=== PATIENT | male | born 1945 | race Caucasian/White ===

== ENCOUNTER → 2016-12-07 | Outpatient (CLI) | payer MEDICARE, BC | END | disposition home or self-care (01) | LOC: LABWHC1 16:35 | PROVIDERS: ATTEND Internal Medicine | DX: R19.7 Diarrhea, unspecified (principal) | CPT/HCPCS: 36415; 82272; 87045; 87046; 87324; 87328; 87329; 89055 ==

== ENCOUNTER 2016-12-17 17:16 | Inpatient (IN) | payer MEDICARE, BC ==
[2016-12-17] MEDS ORDERED: SODIUM CHLORIDE 0.9% 1,000 ML IV STA (17:24)
[2016-12-17 17:55] LABS: Glucose,Whole Blood 514 mg/dL (75-99)
[2016-12-17 18:00] LABS: Basophils % (A) 1 %; CH 33.1; CHCM 33.3; Eosinophils % (A) 1 %; HDW 2.56; HGB 11.2 gm/dL (13.0-17.5); Luc # (Auto) 0.08; Luc % (Auto) 3; Lymphocytes # (A) 0.6 k/uL (1.0-4.8); Lymphocytes % (A) 16 %; MCH 32.9 pg (25.0-35.0); MCHC 32.8 g/dL (31.0-37.0); MCV 100.1 fL (80.0-100.0); Mean Platelet Volume 9.1; Monocytes # (A) 0.2 k/uL (0-1.0); Monocytes % (A) 7 %; Neutrophils # (A) 2.5 k/uL (1.3-7.7); Neutrophils % (A) 73 %; RDW 12.9 % (11.5-15.5); VBG PH 7.31 (7.31-7.41); WBC 3.4 k/uL (3.8-10.6); WBC (Perox) 3.37
[2016-12-17 18:11] LABS: Appearance,Urine Clear (Clear); Bilirubin,Urine Negative (Negative); Glucose,Urine (UA) 4+ (Negative); Ketones,Urine Negative (Negative); Leukocyte Esterase,Urine Negative (Negative); Mucus,Urine Rare /hpf; Nitrite,Urine Negative (Negative); PH, Urine 5.5 (5.0-8.0); Particle Count 386; Protein,Urine 2+ (Negative); RBC,Urine <1 /hpf (0-5); Specific Gravity,Urine 1.011 (1.001-1.035); UA Billing (MACRO vs. MICRO) MICRO; Urobilinogen,Urine <2.0 mg/dL (<2.0); WBC,Urine <1 /hpf (0-5)
[2016-12-17 18:11] LABS: ALT 39 U/L (21-72); AST 20 U/L (17-59); Alkaline Phosphatase 88 U/L (38-126); Anion Gap 6 mmol/L; Blood Urea Nitrogen 35 mg/dL (9-20); Calcium 8.3 mg/dL (8.4-10.2); Carbon Dioxide 22 mmol/L (22-30); Chloride 105 mmol/L (98-107); Non-African American GFR(MDRD) 43 (>60 ml/min/1.73 sqM); Phosphorous 3.4 mg/dL (2.5-4.5); Potassium 4.7 mmol/L (3.5-5.1); Sodium 133 mmol/L (137-145); Total Bilirubin 0.4 mg/dL (0.2-1.3); Total Protein 5.2 g/dL (6.3-8.2)
--- NOTE | 2016-12-17 18:15 | ED ---
General Adult HPI - General Chief complaint: Recheck/Abnormal Lab/Rx Stated complaint: Hyperglycemia Time Seen by Provider: 12/17/16 17:24 Source: patient, RN notes reviewed, old records reviewed Mode of arrival: EMS Limitations: no limitations - History of Present Illness Initial comments: This is a 70-year-old male to the ER for evaluation of abnormal lab tests increased blood well. Patient does have evidence above and does suffer from insulin-dependent diabetes. Patient has no chest pain shortness of breath or abdominal pain. No nausea vomiting or diarrhea. No fevers. Patient has had elevated blood sugar at home, of a blood pressure, patient lives by himself and family states patient has not been acting appropriately. Patient was supposed to make it to a dinner today with a friend and he is completely [place]. It is not like this patient is very prompt. Patient was found at his house with altered mental status by family and friends - Related Data Home Medications Medication Instructions Recorded Confirmed ALPRAZolam [Xanax] 0.25 mg PO BID PRN 03/11/14 12/17/16 Acetaminophen-Codeine 300-30mg 1 tab PO TID PRN 03/11/14 12/17/16 [Tylenol w/codeine #3] Atorvastatin [Lipitor] 20 mg PO HS 03/11/14 12/17/16 Clopidogrel [Plavix] 75 mg PO DAILY 03/11/14 12/17/16 Cyclobenzaprine [Flexeril] 10 mg PO BID PRN 03/11/14 12/17/16 Isosorbide Mononitrate ER [Imdur] 30 mg PO QAM 03/11/14 12/17/16 hydrALAZINE HCL 25 mg PO TID 03/31/14 12/17/16 Enalapril [Vasotec] 20 mg PO QAM 08/18/14 12/17/16 Ergocalciferol [Vitamin D2 50,000 unit PO QMONTH 09/16/14 12/17/16 (DRISDOL)] Atenolol [Tenormin] 50 mg PO QAM 09/25/14 12/17/16 INSULIN LISPRO (humaLOG) [humaLOG See Protocol SQ-PUMP CONTINUOUS 09/25/1412/17 (formulary)] Aspirin 81 mg PO DAILY 01/30/15 12/17/16 Cyanocobalamin [Vitamin B-12] 1,000 mcg PO DAILY 03/03/16 12/17/16 Glucagon Emergency Kit [Glucagon 1 dose IM ONCE PRN 03/03/16 12/17/16 Emergency Kit] Pyridoxine [Vitamin B-6] 50 mg PO DAILY 03/03/16 12/17/16 Thiamine [Vitamin B-1] 100 mg PO DAILY 03/03/16 12/17/16 amLODIPine [Norvasc] 5 mg PO DAILY 03/03/16 12/17/16 Torsemide [Demadex] 10 mg PO DAILY PRN 12/17/16 12/17/16 Zolpidem [Ambien] 5 mg PO HS 12/17/16 12/17/16 Allergies Allergy/AdvReac Type Severity Reaction Status Date / Time No Known Allergies Allergy Verified 12/17/16 18:17 Review of Systems ROS Statement: Those systems with pertinent positive or pertinent negative responses have been documented in the HPI. ROS Other: All systems not noted in ROS Statement are negative. Past Medical History Past Medical History: Coronary Artery Disease (CAD), CVA/TIA, Diabetes Mellitus , Hyperlipidemia, Hypertension, Myocardial Infarction ([place]), Musculoskeletal Disorder Additional Past Medical History / Comment(s): Osteomyelitis of the right second and third toes status post amputation in 2010. February MRI misaligned vertibrae in neck, cervical. Last Myocardial Infarction Date:: 2009 History of Any Multi-Drug Resistant Organisms: None Reported Past Surgical History: Appendectomy, Heart Catheterization, Heart Catheterization With Stent, Joint Replacement, Orthopedic Surgery, Tonsillectomy Additional Past Surgical History / Comment(s): Amputation of the right second and third toes for osteomyelitis that failed conservative treatment of a Rg grade 3 diabetic ulcer. Nonmalignant mass removed from the left anterior chestwall.Endoscopic sinus surgery. Bilateral cataract removal and lens implant. Laser procedures done on both eyes. two moles rmeoved from back Past Anesthesia/Blood Transfusion Reactions: No Reported Reaction Date of Last Stent Placement:: 2009 Past Psychological History: No Psychological Hx Reported Smoking Status: Never smoker Past Alcohol Use History: None Reported Additional Past Alcohol Use History / Comment(s): Patient is and lives with his . He has 2 adult daughters that are modestly well. The younger daughter with scoliosis. Another with out troubles. Patient is been a lifelong nonsmoker.Nosignificant alcohol use. 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 There isapet dog in the home. Past Drug Use History: None Reported - Past Family History Father Family Medical History: Congestive Heart Failure (CHF) Mother Family Medical History: Dementia, Myocardial Infarction ([place]) General Exam - General Exam Comments Initial Comments: NIH of 2, inappropriate answers to questions Limitations: no limitations General appearance: alert, in no apparent distress Head exam: Present: atraumatic, normocephalic, normal inspection Eye exam: Present: normal appearance, PERRL, EOMI. Absent: scleral icterus, conjunctival injection, periorbital swelling ENT exam: Present: normal exam, mucous membranes moist Neck exam: Present: normal inspection. Absent: tenderness, meningismus, lymphadenopathy Respiratory exam: Present: normal lung sounds bilaterally. Absent: respiratory distress, wheezes, rales, rhonchi, stridor Cardiovascular Exam: Present: regular rate, normal rhythm, normal heart sounds. Absent: systolic murmur, diastolic murmur, rubs, gallop, clicks GI/Abdominal exam: Present: soft, normal bowel sounds. Absent: distended, tenderness, guarding, rebound, rigid Extremities exam: Present: normal inspection, full ROM, normal capillary refill. Absent: tenderness, pedal edema, joint swelling, calf tenderness Back exam: Present: normal inspection Neurological exam: Present: alert, oriented X3, CN II-XII intact Psychiatric exam: Present: normal affect, normal mood Skin exam: Present: warm, dry, intact, normal color. Absent: rash Course Vital Signs 12/17/16 12/17/16 17:24 19:47 Temperature 98.3 F Pulse Rate 73 71 Respiratory 16 18 Rate Blood Pressure 186/82 182/81 O2 Sat by Pulse 97 98 Oximetry - Reevaluation(s) Reevaluation #1: 12/17/16 20:34 Patient has no improvement in symptoms, still difficulty answering questions EKG Findings - EKG Comments: EKG Findings:: EKG shows normal sinus rhythm at 74, VA 202, QRS 100, QTC 461 Medical Decision Making - Medical Decision Making Family male brought in by family for evaluation of altered mental status, not acting appropriately. Not speaking appropriately. Not sleeping, hallucinating. Patient NIH 2, and this has had answers to questions at times. No founding of infection, CT is negative, patient will be admitted for neurological evaluation - Lab Data Result diagrams: 12/17/16 17:15 12/17/16 17:15 Lab Results 12/17/16 12/17/16 12/17/16 Range/Units 17:15 17:15 17:15 WBC 3.4 L (3.8-10.6) k/uL RBC 3.40 L (4.30-5.90) m/uL Hgb 11.2 L (13.0-17.5) gm/dL Hct 34.0 L (39.0-53.0) % MCV 100.1 H (80.0-100.0) fL MCH 32.9 (25.0-35.0) pg MCHC 32.8 (31.0-37.0) g/dL RDW 12.9 (11.5-15.5) % Plt Count 144 L (150-450) k/uL Neutrophils % 73 % Lymphocytes % 16 % Monocytes % 7 % Eosinophils % 1 % Basophils % 1 % Neutrophils # 2.5 (1.3-7.7) k/uL Lymphocytes # 0.6 L (1.0-4.8) k/uL Monocytes # 0.2 (0-1.0) k/uL Eosinophils # 0.0 (0-0.7) k/uL Basophils # 0.0 (0-0.2) k/uL VBG pH (7.31-7.41) VBG pCO2 (37-51) mmHg VBG HCO3 (24-28) mmol/L Sodium 133 L (137-145) mmol/L Potassium 4.7 (3.5-5.1) mmol/L Chloride 105 (98-107) mmol/L Carbon Dioxide 22 (22-30) mmol/L Anion Gap 6 mmol/L BUN 35 H (9-20) mg/dL Creatinine 1.60 H (0.66-1.25) mg/dL Est GFR (MDRD) Af Amer 52 (>60 ml/min/1.73 sqM) Est GFR (MDRD) Non-Af 43 (>60 ml/min/1.73 sqM) Glucose 517 H* (74-99) mg/dL POC Glucose (mg/dL) (75-99) mg/dL POC Glu General Worker ID Calcium 8.3 L (8.4-10.2) mg/dL Phosphorus 3.4 (2.5-4.5) mg/dL Magnesium 2.0 (1.6-2.3) mg/dL Total Bilirubin 0.4 (0.2-1.3) mg/dL AST 20 (17-59) U/L ALT 39 (21-72) U/L Alkaline Phosphatase 88 (38-126) U/L Total Creatine Kinase 75 (55-170) U/L CK-MB (CK-2) 3.3 H* (0.0-2.4) ng/mL CK-MB (CK-2) Rel Index 4.4 Troponin I <0.012 (0.000-0.034) ng/mL Total Protein 5.2 L (6.3-8.2) g/dL Albumin 3.4 L (3.5-5.0) g/dL Urine Color Urine Appearance (Clear) Urine pH (5.0-8.0) Ur Specific [place] (1.001-1.035) Urine Protein (Negative) Urine Glucose (UA) (Negative) Urine Ketones (Negative) Urine Blood (Negative) Urine Nitrite (Negative) Urine Bilirubin (Negative) Urine Urobilinogen (<2.0) mg/dL Ur Leukocyte Esterase (Negative) Urine RBC (0-5) /hpf Urine WBC (0-5) /hpf Urine Mucus (None) /hpf Acetone, Qual Negative (Negative) 12/17/16 12/17/16 12/17/16 Range/Units 17:15 17:49 18:02 WBC (3.8-10.6) k/uL RBC (4.30-5.90) m/uL Hgb (13.0-17.5) gm/dL Hct (39.0-53.0) % MCV (80.0-100.0) fL MCH (25.0-35.0) pg MCHC (31.0-37.0) g/dL RDW (11.5-15.5) % Plt Count (150-450) k/uL Neutrophils % % Lymphocytes % % Monocytes % % Eosinophils % % Basophils % % Neutrophils # (1.3-7.7) k/uL Lymphocytes # (1.0-4.8) k/uL Monocytes # (0-1.0) k/uL Eosinophils # (0-0.7) k/uL Basophils # (0-0.2) k/uL VBG pH 7.31 (7.31-7.41) VBG pCO2 47 (37-51) mmHg VBG HCO3 23 L (24-28) mmol/L Sodium (137-145) mmol/L Potassium (3.5-5.1) mmol/L Chloride (98-107) mmol/L Carbon Dioxide (22-30) mmol/L Anion Gap mmol/L BUN (9-20) mg/dL Creatinine (0.66-1.25) mg/dL Est GFR (MDRD) Af Amer (>60 ml/min/1.73 sqM) Est GFR (MDRD) Non-Af (>60 ml/min/1.73 sqM) Glucose (74-99) mg/dL POC Glucose (mg/dL) 514 H (75-99) mg/dL POC Glu General Worker ID Karl, Elvia Calcium (8.4-10.2) mg/dL Phosphorus (2.5-4.5) mg/dL Magnesium (1.6-2.3) mg/dL Total Bilirubin (0.2-1.3) mg/dL AST (17-59) U/L ALT (21-72) U/L Alkaline Phosphatase (38-126) U/L Total Creatine Kinase (55-170) U/L CK-MB (CK-2) (0.0-2.4) ng/mL CK-MB (CK-2) Rel Index Troponin I (0.000-0.034) ng/mL Total Protein (6.3-8.2) g/dL Albumin (3.5-5.0) g/dL Urine Color Yellow Urine Appearance Clear (Clear) Urine pH 5.5 (5.0-8.0) Ur Specific [place] 1.011 (1.001-1.035) Urine Protein 2+ H (Negative) Urine Glucose (UA) 4+ H (Negative) Urine Ketones Negative (Negative) Urine Blood Negative (Negative) Urine Nitrite Negative (Negative) Urine Bilirubin Negative (Negative) Urine Urobilinogen <2.0 (<2.0) mg/dL Ur Leukocyte Esterase Negative (Negative) Urine RBC <1 (0-5) /hpf Urine WBC <1 (0-5) /hpf Urine Mucus Rare H (None) /hpf Acetone, Qual (Negative) 12/17/16 Range/Units 20:16 WBC (3.8-10.6) k/uL RBC (4.30-5.90) m/uL Hgb (13.0-17.5) gm/dL Hct (39.0-53.0) % MCV (80.0-100.0) fL MCH (25.0-35.0) pg MCHC (31.0-37.0) g/dL RDW (11.5-15.5) % Plt Count (150-450) k/uL Neutrophils % % Lymphocytes % % Monocytes % % Eosinophils % % Basophils % % Neutrophils # (1.3-7.7) k/uL Lymphocytes # (1.0-4.8) k/uL Monocytes # (0-1.0) k/uL Eosinophils # (0-0.7) k/uL Basophils # (0-0.2) k/uL VBG pH (7.31-7.41) VBG pCO2 (37-51) mmHg VBG HCO3 (24-28) mmol/L Sodium (137-145) mmol/L Potassium (3.5-5.1) mmol/L Chloride (98-107) mmol/L Carbon Dioxide (22-30) mmol/L Anion Gap mmol/L BUN (9-20) mg/dL Creatinine (0.66-1.25) mg/dL Est GFR (MDRD) Af Amer (>60 ml/min/1.73 sqM) Est GFR (MDRD) Non-Af (>60 ml/min/1.73 sqM) Glucose (74-99) mg/dL POC Glucose (mg/dL) 344 H (75-99) mg/dL POC Glu General Worker ID Elvia Barajas Calcium (8.4-10.2) mg/dL Phosphorus (2.5-4.5) mg/dL Magnesium (1.6-2.3) mg/dL Total Bilirubin (0.2-1.3) mg/dL AST (17-59) U/L ALT (21-72) U/L Alkaline Phosphatase (38-126) U/L Total Creatine Kinase (55-170) U/L CK-MB (CK-2) (0.0-2.4) ng/mL CK-MB (CK-2) Rel Index Troponin I (0.000-0.034) ng/mL Total Protein (6.3-8.2) g/dL Albumin (3.5-5.0) g/dL Urine Color Urine Appearance (Clear) Urine pH (5.0-8.0) Ur Specific [place] (1.001-1.035) Urine Protein (Negative) Urine Glucose (UA) (Negative) Urine Ketones (Negative) Urine Blood (Negative) Urine Nitrite (Negative) Urine Bilirubin (Negative) Urine Urobilinogen (<2.0) mg/dL Ur Leukocyte Esterase (Negative) Urine RBC (0-5) /hpf Urine WBC (0-5) /hpf Urine Mucus (None) /hpf Acetone, Qual (Negative) - Radiology Data Radiology results: report reviewed (CT brain is negative for acute disease), image reviewed Critical Care Time Critical Care Time: Yes Total Critical Care Time: 31 Disposition Clinical Impression: CVA (cerebral vascular accident), Altered mental state Disposition: ADMITTED IP TO THIS [facility] Condition: Fair Referrals: Enid Azar MD [Primary Care Provider] - 1-2 days
[2016-12-17 18:18] LABS: Creatine Kinase 75 U/L (55-170)
[2016-12-17 18:24] LABS: Glucose 517 mg/dL (74-99)
[2016-12-17 18:31] LABS: Troponin I <0.012 ng/mL (0.000-0.034)
[2016-12-17 18:38] LABS: Creatine Kinase MB 3.3 ng/mL (0.0-2.4)
[2016-12-17] MEDS ORDERED: INSULIN REGULAR 100 UNIT/ML VIAL IV ONE (19:13)
[2016-12-17] MEDS ORDERED: INSULIN REGULAR 100 UNIT/ML VIAL SQ ONE (19:13)
--- NOTE | 2016-12-17 19:13 | CT ---
EXAMINATION TYPE: CT brain wo con DATE OF EXAM: 12/17/2016 7:09 PM COMPARISON: 03/03/2016 HISTORY: Slurred speech and memory problems. History of stroke. CT DLP: 1012.70 mGycm Automated exposure control for dose reduction was used. FINDINGS: There is cerebral cortical atrophy. There is no mass effect nor midline shift. There is no sign of in tracranial hemorrhage. The calvarium is intact. IMPRESSION: Mild atrophy. No acute abnormality. No change.
[2016-12-17 20:22] LABS: Glucose,Whole Blood 344 mg/dL (75-99)
[2016-12-17] MEDS ORDERED: ASPIRIN 325 MG TAB PO STA (20:31)
[2016-12-17 20:59] LABS: Glucose,Whole Blood 304 mg/dL (75-99)
[2016-12-17 22:25] VITALS: BMI 24.3
[2016-12-17] MEDS ORDERED: MELATONIN 5 MG TABLET PO PRN (23:09)
[2016-12-17] MEDS ORDERED: ATORVASTATIN 20 MG TAB PO SCH (23:15)
[2016-12-17 23:16] LABS: Glucose,Whole Blood 189 mg/dL (75-99)
[2016-12-17] MEDS: SODIUM CHLORIDE 0.9% 1,000 ML IV SCH (23:55)
[2016-12-18] MEDS: hydrALAZINE HCL 25 MG TAB PO SCH ×3 (00:11→16:23)
[2016-12-18] MEDS: INSULIN LISPRO (humaLOG) 300 UNIT/3 ML VIAL SQ SCH ×3 (00:11→12:17)
[2016-12-18 00:19] LABS: Glucose,Whole Blood 172 mg/dL (75-99)
[2016-12-18 06:14] LABS: Cholesterol 93 mg/dL (<200); HDL Cholesterol 49 mg/dL (40-60); Triglycerides 48 mg/dL (<150)
[2016-12-18] MEDS: SODIUM CHLORIDE 0.9% 1,000 ML IV SCH (06:39)
[2016-12-18 06:46] LABS: Glucose,Whole Blood 183 mg/dL (75-99)
[2016-12-18] MEDS ORDERED: ASPIRIN 325 MG TAB PO SCH (09:00)
--- NOTE | 2016-12-18 09:40 | US ---
EXAMINATION TYPE: US carotid duplex BILAT DATE OF EXAM: 12/18/2016 COMPARISON: Previous 05 June 2011 CLINICAL HISTORY: Stenosis. Weakness, dizziness EXAM MEASUREMENTS: RIGHT: Peak Systolic Velocity (PSV) cm/sec ----- Right CCA: 54.9 ----- Right ICA: 80.1 ----- Right ECA: 149.5 ICA/CCA ratio: 1.5 RIGHT: End Diastole cm/sec ----- Right CCA: 6.9 ----- Right ICA: 12.8 ----- Right ECA: 9.7 LEFT: Peak Systolic Velocity (PSV) cm/sec ----- Left CCA: 74.6 ----- Left ICA: 121.0 ----- Left ECA: 108.1 ICA/CCA ratio: 1.6 LEFT: End Diastole cm/sec ----- Left CCA: 14.2 ----- Left ICA: 17.6 ----- Left ECA: 7.9 VERTEBRALS (direction of flow): Right Vertebral: Antegrade Left Vertebral: Antegrade Severe plaque noted bilateral bulbs. Increased velocities noted right ECA Grayscale, color Doppler, spectral Doppler imaging performed of the carotid arteries. IMPRESSION: No hemodynamic significant stenosis of the proximal internal carotid arteries bilaterall y by Doppler criteria, and indirect measurement of carotid stenosis. Dense carotid bulb calcification s are present.
[2016-12-18 09:42] VITALS: RESP 18
[2016-12-18 12:09] LABS: Glucose,Whole Blood 349 mg/dL (75-99)
[2016-12-18 14:10] LABS: Glucose,Whole Blood 313 mg/dL (75-99)
--- NOTE | 2016-12-18 14:53 | P.CNNES ---
History of Present Illness Consult date: 12/18/16 History of Present Illness: Glucose was 517 remained very confused until last night. Dazed feeling much better. A history of mini strokes in the past. Taking Plavix and baby aspirin. Questions see the patient possible stroke and altered mental status. 70-year-old right-handed white male H that yesterday he felt that his sugar had dropped. He knows when his sugar drops because he feels shouldn't anxious and fidgety and confused. It's he started looking for something to drink and eat and he does not recall what happened afterward. Daughter states that she got a phone call from a friend that he was not answering the door. Go out with a friend yesterday. Her friend got into the house the patient was very confused and obstacles were on the floor. She was told to call EMS and EMS brought him to the emergency room. His Accu-Chek was over 500. Emergency room his blood sugar was over 500. He was admitted to the hospital with possible stroke and altered mental status. Review of Systems Constitutional: Denies chills, Denies fever Eyes: denies blurred vision, denies pain Cardiovascular: Reports as per HPI Respiratory: Denies cough Neurological: Denies numbness, Denies weakness Psychiatric: Denies anxiety, Denies depression Past Medical History Past Medical History: Coronary Artery Disease (CAD), CVA/TIA, Diabetes Mellitus , Hyperlipidemia, Hypertension, Myocardial Infarction ([place]), Musculoskeletal Disorder Additional Past Medical History / Comment(s): Osteomyelitis of the right second and third toes status post amputation in 2010. February MRI misaligned vertibrae in neck, cervical. Last Myocardial Infarction Date:: 2009 History of Any Multi-Drug Resistant Organisms: None Reported Past Surgical History: Appendectomy, Heart Catheterization, Heart Catheterization With Stent, Joint Replacement, Orthopedic Surgery, Tonsillectomy Additional Past Surgical History / Comment(s): Amputation of the right second and third toes for osteomyelitis that failed conservative treatment of a Rg grade 3 diabetic ulcer. Nonmalignant mass removed from the left anterior chestwall.Endoscopic sinus surgery. Bilateral cataract removal and lens implant. Laser procedures done on both eyes. two moles removed from back Past Anesthesia/Blood Transfusion Reactions: No Reported Reaction Date of Last Stent Placement:: 2009 Past Psychological History: No Psychological Hx Reported Smoking Status: Never smoker Past Alcohol Use History: None Reported Additional Past Alcohol Use History / Comment(s): Patient is and lives with his . He has 2 adult daughters that are modestly well. The younger daughter with scoliosis. Another with out troubles. Patient is been a lifelong nonsmoker.Nosignificant alcohol use. 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 There isapet dog in the home. Past Drug Use History: None Reported - Past Family History Father Family Medical History: Congestive Heart Failure (CHF) Mother Family Medical History: Dementia, Myocardial Infarction ([place]) Medications and Allergies Home Medications Medication Instructions Recorded Confirmed Type ALPRAZolam [Xanax] 0.25 mg PO BID PRN 03/11/14 12/17/16 History Acetaminophen-Codeine 300-30mg 1 tab PO TID PRN 03/11/14 12/17/16 History [Tylenol w/codeine #3] Atorvastatin [Lipitor] 20 mg PO HS 03/11/14 12/17/16 History Clopidogrel [Plavix] 75 mg PO DAILY 03/11/14 12/17/16 History Cyclobenzaprine [Flexeril] 10 mg PO BID PRN 03/11/14 12/17/16 History Isosorbide Mononitrate ER [Imdur] 30 mg PO QAM 03/11/14 12/17/16 History hydrALAZINE HCL 25 mg PO TID 03/31/14 12/17/16 History Enalapril [Vasotec] 20 mg PO QAM 08/18/14 12/17/16 History Ergocalciferol [Vitamin D2 50,000 unit PO QMONTH 09/16/14 12/17/16 History (DRISDOL)] Atenolol [Tenormin] 50 mg PO QAM 09/25/14 12/17/16 History INSULIN LISPRO (humaLOG) [humaLOG See Protocol SQ-PUMP CONTINUOUS 09/25/1412/17 History (formulary)] Aspirin 81 mg PO DAILY 01/30/15 12/17/16 History Cyanocobalamin [Vitamin B-12] 1,000 mcg PO DAILY 03/03/16 12/17/16 History Glucagon Emergency Kit [Glucagon 1 dose IM ONCE PRN 03/03/16 12/17/16 History Emergency Kit] Pyridoxine [Vitamin B-6] 50 mg PO DAILY 03/03/16 12/17/16 History Thiamine [Vitamin B-1] 100 mg PO DAILY 03/03/16 12/17/16 History amLODIPine [Norvasc] 5 mg PO DAILY 03/03/16 12/17/16 History Torsemide [Demadex] 10 mg PO DAILY PRN 12/17/16 12/17/16 History Zolpidem [Ambien] 5 mg PO HS 12/17/16 12/17/16 History Allergies Allergy/AdvReac Type Severity Reaction Status Date / Time No Known Allergies Allergy Verified 12/17/16 18:17 Physical Examination - Vital Signs Vital Signs: Vital Signs Temp Pulse Pulse Resp BP BP Pulse Ox 12/18/16 08:00 98.2 F 66 18 187/84 97 12/18/16 04:00 68 16 179/78 97 12/18/16 00:00 70 18 174/80 98 12/17/16 21:15 97.2 F L 75 18 197/82 98 12/17/16 21:01 97.8 F 74 18 173/90 97 12/17/16 20:45 97.2 F L 75 16 197/82 98 12/17/16 19:47 71 18 182/81 98 12/17/16 18:45 72 221/85 95 12/17/16 17:24 98.3 F 73 16 186/82 97 Intake and Output 12/17/16 12/18/16 12/18/16 22:59 06:59 14:59 Intake Total 20 700 200 Balance 20 700 200 Intake: IV 20 700 Sodium Chloride 0.9% 1, 20 700 000 ml @ 100 mls/hr IV . Q10H [facility] Rx#:[id number] Oral 200 Other: # Voids 1 2 Weight 70.3 kg 69.7 kg - Constitutional General appearance: average body habitus - EENT EENT: PERRL, mucous membranes moist, hearing intact, vision intact - Respiratory Respiratory: lungs clear - Cardiovascular Cardiovascular: regular rate - Integumentary Integumentary: normal - Neurologic Mental status he was awake alert and oriented he was speech was fluent there was no a aphasia or dysarthria Cranial nerve examination: PERRL, EOMI, VFF, face symmetric, tongue midline Speech examination: intact Sensorimotor examination: intact Detailed motor examination: grossly full strength in all extremities Results - Laboratory Findings CBC and BMP: 12/17/16 17:15 12/17/16 17:15 Abnormal Lab Findings: Abnormal Labs 12/17/16 12/17/16 12/17/16 17:15 17:15 17:15 WBC 3.4 L RBC 3.40 L Hgb 11.2 L Hct 34.0 L MCV 100.1 H Plt Count 144 L Lymphocytes # 0.6 L VBG HCO3 Sodium 133 L BUN 35 H Creatinine 1.60 H Glucose 517 H* POC Glucose (mg/dL) Calcium 8.3 L CK-MB (CK-2) 3.3 H* Total Protein 5.2 L Albumin 3.4 L Urine Protein Urine Glucose (UA) Urine Mucus 12/17/16 12/17/16 12/17/16 17:15 17:49 18:02 WBC RBC Hgb Hct MCV Plt Count Lymphocytes # VBG HCO3 23 L Sodium BUN Creatinine Glucose POC Glucose (mg/dL) 514 H Calcium CK-MB (CK-2) Total Protein Albumin Urine Protein 2+ H Urine Glucose (UA) 4+ H Urine Mucus Rare H 12/17/16 12/17/16 12/17/16 20:16 20:54 23:04 WBC RBC Hgb Hct MCV Plt Count Lymphocytes # VBG HCO3 Sodium BUN Creatinine Glucose POC Glucose (mg/dL) 344 H 304 H 189 H Calcium CK-MB (CK-2) Total Protein Albumin Urine Protein Urine Glucose (UA) Urine Mucus 12/18/16 12/18/16 12/18/16 00:07 05:58 11:49 WBC RBC Hgb Hct MCV Plt Count Lymphocytes # VBG HCO3 Sodium BUN Creatinine Glucose POC Glucose (mg/dL) 172 H 183 H 349 H Calcium CK-MB (CK-2) Total Protein Albumin Urine Protein Urine Glucose (UA) Urine Mucus 12/18/16 14:08 WBC RBC Hgb Hct MCV Plt Count Lymphocytes # VBG HCO3 Sodium BUN Creatinine Glucose POC Glucose (mg/dL) 313 H Calcium CK-MB (CK-2) Total Protein Albumin Urine Protein Urine Glucose (UA) Urine Mucus Assessment and Plan (1) Altered mental state Status: Acute Code(s): R41.82 - ALTERED MENTAL STATUS, UNSPECIFIED (2) Diabetes mellitus type 2, uncontrolled Status: Acute Code(s): E11.65 - TYPE 2 DIABETES MELLITUS WITH HYPERGLYCEMIA (3) TIA (transient ischemic attack) Status: Acute Code(s): G45.9 - TRANSIENT CEREBRAL ISCHEMIC ATTACK, UNSPECIFIED Plan: The patient's episode of altered mental status is likely due to abnormal blood glucose. He shouldn't the patient feels that his blood sugar might of dropped and he may have overcompensated. His blood sugar was over 500 on admission. Also in the differential is possible TIA although this is less likely. He has had a carotid ultrasound and will also do an echocardiogram. Will check EEG. He had a CT of the brain which was unremarkable. The patient to remain on Plavix and baby aspirin.
[2016-12-18 15:46] LABS: Glucose,Whole Blood 247 mg/dL (75-99)
[2016-12-18 17:29] LABS: Glucose,Whole Blood 187 mg/dL (75-99)
[2016-12-18 17:46] VITALS: BP 142/65; PULSE 80; TEMP 98.4
--- NOTE | 2016-12-18 22:09 | HP ---
DATE OF ADMISSION: 12/17/2016 This dictation is discharge summary and history and physical examination. Patient is a very pleasant 70 -year-old gentleman who Patient is a very pleasant 70-year-old gentleman who came in with complaints of lightheadedness and excessive urination and confusion. Patient was quite a bit confused and confusion completely resolved at this point of time. Patient was found to have highly elevated blood sugars and patient was also dehydrated with elevated BUN and creatinine. Patient baseline creatinine is around 1.3 now around 1.6. Sodium was low as well secondary to dehydration and pseudohyponatremia. Patient's symptoms completely improved with IV hydration and patient's blood sugars are in 500. Patient was started on IV insulin and patient has metabolic encephalopathy, which completely resolved at this point of time. Patient denied any weakness. Patient denied any fever, chills. Patient denied any nausea, vomiting. Patient has an insulin pump and insulin pump is not regarding the blood sugars apparently and I checked the insulin pump site which looks okay for me and patient will be started back, plan is to start him back on insulin pump and see how his blood sugars do on insulin pump. We will also called [facility]. Patient wanted to be discharged today. His encephalopathy improved, but my concern is continued elevation of blood sugars if pump is nonfunctional. If patient is being discharged without significant pump problem, patient will follow with Dr. Sapp tomorrow as patient wanted to go home today. Patient will be discharged either way but if pump is not figured it out, patient will follow with Dr. aSpp as mentioned above. REVIEW OF SYSTEMS: CONSTITUTIONAL: No fever, no malaise, no fatigue. HEENT: No recent visual problems or hearing problems. Denied any sore throat. CARDIOVASCULAR: No chest pain, orthopnea, PND, no palpitations, no syncope. PULMONARY: No shortness of breath, no cough, no hemoptysis. GASTROINTESTINAL: No diarrhea, no nausea, no vomiting, no abdominal pain. Normoactive bowel sounds. NEUROLOGICAL: As described in history of present illness. HEMATOLOGICAL: Denies any bleeding or petechiae. GENITOURINARY: Denies any burning micturition, frequency, or urgency. MUSCULOSKELETAL/RHEUMATOLOGICAL: Denies any joint pain, swelling, or any muscle pain. ENDOCRINE: Denies any polyuria or polydipsia. The rest of the 14 point review of systems is negative. PAST MEDICAL HISTORY: Coronary artery disease, cerebrovascular accident in the past, diabetes mellitus, hyperlipidemia, hypertension, myocardial infarction. Patient had osteomyelitis of the right second and third toes and status post amputation in 2010, appendectomy. Cardiac catheterization and stent placement, joint replacement surgery, tonsillectomy. Patient also has chronic kidney disease secondary to diabetic nephropathy and patient does have diabetic neuropathy as well. SOCIAL HISTORY: Denied any smoking, alcohol abuse or drug abuse. FAMILY HISTORY: Father had congestive heart failure. Mother had dementia and myocardial infarction. Home medications: 1. Alprazolam. 2. Acetaminophen. 3. Codeine. 4. Atorvastatin. 5. Plavix. 6. Cyclobenzaprine. 7. Isosorbide mononitrate. 8. Hydralazine. 9. Ergocalciferol. 10. Atenolol. 11. Insulin through the pump. 12. Cyanocobalamin. 13. Glucagon. 14. Paradox. 15. Thiamin. 16. Amlodipine. 17. Torsemide. 18. Ambien. ALLERGIES: No known drug allergies. PHYSICAL EXAMINATION: Temperature 98.2, pulse was 66, respiratory rate of 18, blood pressure is 97/84. Saturating at 97% on room air. GENERAL: The patient is alert and oriented x3, not in any acute distress. Well developed, well nourished. HEENT: Pupils are round and equally reacting to light. EOMI. No scleral icterus. No conjunctival pallor. Normocephalic, atraumatic. No pharyngeal erythema. No thyromegaly. CARDIOVASCULAR: S1 and S2 present. No murmurs, rubs, or gallops. PULMONARY: Chest is clear to auscultation, no wheezing or crackles. ABDOMEN: Soft, nontender, nondistended, normoactive bowel sounds. No palpable organomegaly. MUSCULOSKELETAL: No joint swelling or deformity. EXTREMITIES: No cyanosis, clubbing, or pedal edema. NEUROLOGICAL: Gross neurological examination did not reveal any focal deficits. SKIN: No rashes. LABORATORY DATA: CBC abnormalities as mentioned above, patient's blood sugars 313, LDL is 34 UA 2+ protein, 2+ glucose, rare mucus acetone negative in the urine. ASSESSMENT AND PLAN: 1. Confusion and altered mental status and related to metabolic encephalopathy from elevated blood sugars and severe dehydration. Patient received IV fluids. We will increase IV fluids to 150 mL per hour. 2. Type 2 diabetes mellitus uncontrolled blood sugars and management of his blood sugars as mentioned above. 3. History of cerebrovascular accident in the past. 4. Acute renal failure, prerenal azotemia, expect may have improved by now and creatinine is close to his baseline because of which Vasotec will be continued as it is good for his diabetic nephropathy. 5. Chronic kidney disease Stage III secondary to diabetic nephropathy with a positive urine protein. 6. Coronary artery disease. 7. Hyperlipidemia. 8. Hypertension. Most of the management was already discussed in the HPI itself. Patient will be discharged today. Diuretic therapy will be discontinued because of severe dehydration. Xanax and Ambien will be discontinued as well. Patient will follow up with Dr. Enid Azar in [address] Hackett ) tomorrow. This dictation is both H&P and discharge summary.
[2016-12-18] MEDS ORDERED: INSULIN LISPRO (humaLOG) 300 UNIT/3 ML VIAL SQ SCH (23:11)
[2016-12-19] MEDS ORDERED: ASPIRIN 81 MG CHEW PO SCH (09:00)
[2016-12-19] MEDS ORDERED: ISOSORBIDE MONONITRATE ER 30 MG TAB.ER.24H PO SCH (09:00)
[2016-12-19] MEDS ORDERED: ATENOLOL 50 MG TAB PO SCH (09:00)
[2016-12-19] MEDS ORDERED: amLODIPine 10 MG TAB PO SCH (09:00)
[2016-12-19] MEDS ORDERED: CLOPIDOGREL 75 MG TAB PO SCH (09:00)
== END 2016-12-18 19:23 | disposition home or self-care (01) | DRG 637 ==
LOC: EC 17:16 → 6SEL 20:32
PROVIDERS: ADMIT Hospitalist; ATTEND Hospitalist
DX: E11.65 Type 2 diabetes mellitus with hyperglycemia (principal); G93.41 Metabolic encephalopathy; N17.9 Acute kidney failure, unspecified; E87.1 Hypo-osmolality and hyponatremia; E11.22 Type 2 diabetes mellitus with diabetic chronic kidney disease; E11.40 Type 2 diabetes mellitus with diabetic neuropathy, unspecified; E86.0 Dehydration; E78.5 Hyperlipidemia, unspecified; I12.9 Hypertensive chronic kidney disease with stage 1 through stage 4 chronic kidney disease, or unspecified chronic kidney disease; I25.10 Atherosclerotic heart disease of native coronary artery without angina pectoris; I25.2 Old myocardial infarction; N18.3 Chronic kidney disease, stage 3 (moderate); Z79.02 Long term (current) use of antithrombotics/antiplatelets; Z79.82 Long term (current) use of aspirin; Z79.899 Other long term (current) drug therapy; Z96.41 Presence of insulin pump (external) (internal); Z89.421 Acquired absence of other right toe(s); Z95.5 Presence of coronary angioplasty implant and graft; Z96.60 Presence of unspecified orthopedic joint implant; Z82.49 Family history of ischemic heart disease and other diseases of the circulatory system
CPT/HCPCS: 36415; 70450; 80053; 80061; 81001; 82009; 82550; 82553; 82803; 83735; 84100; 84484; 85025; 87086; 93005; 93880; 96360; 96361; 99291